=== PATIENT | male | born 1990 | race Caucasian/White ===

== ENCOUNTER 2020-08-06 12:25 | Emergency (ER) | payer OTHER, SELFPAY ==
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
--- NOTE | 2020-08-08 12:44 | PC.NURSE ---
patient was called and told he could return to work per ROSA Hassan
== END 2020-08-06 14:38 | disposition home or self-care (01) ==
PROVIDERS: Emergency Provider Registered Nurse
DX: J06.9 Acute upper respiratory infection, unspecified (principal); Z20.822 Contact with and (suspected) exposure to COVID-19; F17.200 Nicotine dependence, unspecified, uncomplicated
CPT/HCPCS: 87081; 87426; 87804; 87880; 99203; C9803; G0463

== ENCOUNTER 2023-02-20 04:46 | Emergency (ER) | payer SELFPAY ==
[2023-02-20 04:49] VITALS: BP 157/89; PULSE 95; RESP 16; TEMP 36.7; O2SAT 100
[2023-02-20 05:10] LABS: Basophils Percent Auto 0.6 % (0.2-1.2); Eosinophils Absolute Auto 0.2 K/mm3 (0-0.3); Eosinophils Percent Auto 2.6 % (0-4.4); Hematocrit 44.2 % (42.0-52.0); Hemoglobin 14.2 g/dL (14.0-18.0); Immature Granulocyte Absolute 0.01 K/mm3 (0.00-0.031); Immature Granulocyte Percent A 0.1 % (0-0.5); Lymphocytes Absolute Auto 3.89 K/mm3 (0.9-3.2); Lymphocytes Percent Auto 53.5 % (18.3-44.2); Mean Corpuscular HGB Conc 32.1 g/dl (32-36); Mean Corpuscular Hemoglobin 29.8 pg (26-34); Mean Corpuscular Volume 92.9 fl (80-100); Mean Platelet Volume 8.6 fl (7.4-10.4); Monocytes Absolute Auto 0.5 K/mm3 (0.1-0.6); Monocytes Percent Auto 6.3 % (2.6-8.5); Neutrophils Absolute Auto 2.7 K/mm3 (1.3-6.7); Neutrophils Percent Auto 36.9 % (45.5-73.1); Platelet Count Result 251 k/mm3 (150-375); Red Blood Count 4.76 M/mm3 (4.6-6.20); Red Cell Distribution Width 12.6 % (11.5-14.5); White Blood Count 7.3 K/mm3 (4.5-10.0)
[2023-02-20 05:24] LABS: Bacteria Urine None Seen /hpf; Need Manual Microscopic Reviewed; RBC Urine 0-2 /hpf (0-2); Squamous Epithelial Cell Urine None seen /hpf (Few); WBC Urine 0-5 /hpf
[2023-02-20 05:24] LABS: Ethanol 251 mg/dL (<10)
[2023-02-20 05:26] LABS: Amphetamine Screen Urine Negative (Negative); Barbiturate Screen Urine Negative (Negative); Benzodiazepines Screen Urine Negative (Negative); Cannabinoid Screen Urine Positive (Negative); Cocaine Screen Urine Negative (Negative); Methadone Screen Urine Negative (Negative); Opiate Screen Urine Negative (Negative); Phencyclidine Screen Urine Negative (Negative)
[2023-02-20 05:27] LABS: Acetaminophen < 10 ug/mL (10-30); Alanine Aminotransferase 47 U/L (6-50); Albumin Level 5.1 g/dL (3.5-5.1); Alkaline Phosphatase 63 U/L (38-126); Anion Gap 16 mmol/L (8-16); Aspartate Amino Transferase 36 U/L (17-59); Bilirubin,Total 0.6 mg/dL (0.2-1.3); Blood Urea Nitrogen 14 mg/dL (9-20); Calcium 8.9 mg/dL (8.4-10.2); Carbon Dioxide 24 mmol/L (22-30); Chloride 104 mmol/L (98-107); Estimated CRCL calculation 117 ml/min; Estimated Glomerular Filt Rate > 60; Glucose 146 mg/dL (65-110); Potassium 3.4 mmol/L (3.4-5.0); Salicylate < 1.0 mg/dL (2-20); Sodium 144 mmol/L (137-145)
[2023-02-20 05:32] LABS: Add Urine Microscopic? YES; Appearance Urine Clear (Clear); Color Urine Yellow (Yellow); Glucose Urine UA Negative (Negative); Ketones Urine Negative (Negative); Protein Urine 1+ mg/dL (Negative); Specific Grav Ur 1.015 (1.001-1.035); pH Urine 5.5 (5.0-9.0)
[2023-02-20 05:33] LABS: Bilirubin Urine Negative (Negative); Blood Urine Negative (Negative); Leukocyte Esterase Ur Negative LEU/UL (Negative); Nitrate Urine Negative (Negative); Urobilinogen Urine 0.2 mg/dL (<2.0)
[2023-02-20 05:46] LABS: SARS-CoV-2 RNA PCR Negative (Negative)
[2023-02-20 05:56] LABS: Thyroid Stimulating Hormone 0.824 uIU/mL (0.465-4.680)
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
[2023-02-20 07:26] VITALS: BP 119/65; PULSE 72; RESP 14; O2SAT 95
--- NOTE | 2023-02-20 07:33 | PC.NURSE ---
Assumed care of pt, pt is resting w/ lights dimmed, sitter at bedside. Pt is alert to verbal stimuli, not answering questions at this time, cooperative to vitals and direction. VSS. No concerns at this time, pt is aware awaiting timed lab re draw for 1100 and plan to call Crisis for eval when labs normalize.
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
--- NOTE | 2023-02-20 08:26 | PC.NURSE ---
Dr Hines at pt bedside at this time, pt alert to verbal stimuli w/ lights dimmed and sitter at bedside. Discussed POC. Breakfast tray ordered for pt at this time per EDP VORB.
[2023-02-20 11:03] VITALS: BP 122/76; PULSE 82; RESP 15; O2SAT 100
[2023-02-20 11:17] LABS: Ethanol 131 mg/dL (<10)
[2023-02-20 13:08] LABS: Ethanol 82 mg/dL (<10)
[2023-02-20 14:58] VITALS: BP 126/69; PULSE 60; RESP 14; O2SAT 96
== END 2023-02-20 15:10 | disposition home or self-care (01) ==
PROVIDERS: Emergency Medicine; Emergency Provider Emergency Medicine
DX: R45.851 Suicidal ideations (principal); Z20.822 Contact with and (suspected) exposure to COVID-19; F17.210 Nicotine dependence, cigarettes, uncomplicated; F41.9 Anxiety disorder, unspecified
CPT/HCPCS: 36415; 80053; 80307; 81001; 84443; 85025; 87635; 99284